=== PATIENT | female | born 1975 ===

== ENCOUNTER 2018-07-04 06:08 | Emergency (ER) | payer OTHER ==
[2018-07-04 06:09] VITALS: BMI 48.4
[2018-07-04 06:32] VITALS: RESP 18; TEMP 98.1
--- NOTE | 2018-07-04 07:17 | ED PDOC ---
Arrival/HPI - General Chief Complaint: Cough, Cold, Congestion Time Seen by Provider: 07/04/18 07:03 Historian: Patient - History of Present Illness Narrative History of Present Illness (Text): 07/04/18 07:19 43 year old female, with past medical history of anemia, rheumatoid arthritis, and hypertension, presents to the emergency department for complaints of cough with symptoms that began on Wednesday. She reports that it initially began as an itchiness in her throat and that she produced a lot of green phlegm. Patient states that currently she is experiencing dry, nonproductive cough. She reports no difficulty breathing but states that her ribs hurt from coughing. Patient notes taking augmentin and medication given to her at a clinic without significant improvement. Patient denies any fevers, chills, chest pain, shortnes s of breath, abdominal pain, or any other complaints. Time/Duration: < week (Wednesday) Symptom Onset: Gradual Symptom Course: Unchanged Activities at Onset: Light Context: Home Past Medical History - Provider Review Nursing Documentation Reviewed: Yes Primary Care Provider: Gamaliel Ny Jr. - Infectious Disease Hx of Infectious Diseases: None - Cardiac Hx Hypertension: Yes - Pulmonary Hx Respiratory Disorders: No - Neurological Hx Neurological Disorder: No - Hematological/Oncological Hx Anemia: Yes (with iron injection) - Musculoskeletal/Rheumatological Hx Arthritis: Yes (rheumatoid) - Psychiatric Hx Substance Use: No - Surgical History Hx Gastric Bypass Surgery: Yes Other/Comment: gastric sleeve - Anesthesia Hx Anesthesia: Yes Hx Anesthesia Reactions: No - Suicidal Assessment Feels Threatened In Home Enviroment: No Family/Social History - Physician Review Nursing Documentation Reviewed: Yes Family/Social History: No Known Family HX Smoking Status: Never Smoked Hx Alcohol Use: No Hx Substance Use: No Allergies/Home Meds Allergies/Adverse Reactions: Allergies No Known Allergies Allergy (Verified 07/04/18 06:18) Home Medications: Home Meds Medication Instructions Recorded Confirmed Amoxicillin/Clavulanate [Augmentin 1 tab PO Q12H 07/04/18 07/04/18 875 MG-125 MG Tab] Dm/PE/Acetaminophen/Chlorphenr 2 tab PO Q8H 07/04/18 07/04/18 [Cold Relief Multi-Symp Caplet] Review of Systems - Physician Review All systems were reviewed & negative as marked: Yes - Review of Systems Constitutional: absent: Fevers Respiratory: absent: SOB Physical Exam - Physical Exam Narrative Physical Exam (Text): 07/04/18 07:16 Constitutional: No acute distress. Head: Normocephalic. Atraumatic. Eyes: PERRL. ENT: Moist mucous membranes. Neck: Supple. Cardiovascular: Regular rate. Chest: No tenderness. Respiratory: Clear to auscultation bilaterally. GI: Soft. Nontender. Nondistended. Back: No CVA tenderness. Musculoskeletal: No tenderness or swelling of extremities. Skin: No rash. Neurologic: Alert, no focal deficit. Vital Signs Reviewed: Yes Vital Signs Temp Pulse Resp BP Pulse Ox 07/04/18 06:23 98.1 F 92 H 18 147/113 H 97 Temperature: Afebrile Blood Pressure: Normal Pulse: Regular Respiratory Rate: Normal Appearance: Positive for: Well-Appearing, Non-Toxic, Comfortable Pain Distress: None Mental Status: Positive for: Alert and Oriented X 3 Medical Decision Making ED Course and Treatment: 07/04/18 07:29 Impression: 43 year old female presents to emergency department complaining of cough since Wednesday. Plan: Already on antibiotics. Due to primary complaint of dryness in throat, will advise discontinuation of medication patient taking that includes phenylephrine. Advised humdifier, honey with tea, continue other medications. - Scribe Statement The provider has reviewed the documentation as recorded by the Scribe Kendall Franklin All medical record entries made by the Scribe were at my direction and personally dictated by me. I have reviewed the chart and agree that the record accurately reflects my personal performance of the history, physical exam, medical decision making, and the department course for this patient. I have also personally directed, reviewed, and agree with the discharge instructions and disposition. Disposition/Present on Arrival - Present on Arrival Any Indicators Present on Arrival: No History of DVT/PE: No History of Uncontrolled Diabetes: No Urinary Catheter: No History of Decub. Ulcer: No History Surgical Site Infection Following: None - Disposition Have Diagnosis and Disposition been Completed?: Yes Diagnosis: Dry throat Disposition: HOME/ ROUTINE Disposition Time: 07:15 Patient Plan: Discharge Condition: FAIR Discharge Instructions (ExitCare): Sore Throat, Adult (DC) Prescriptions: Benzonatate [Tessalon Perles] 200 mg PO TID #30 sgl Forms: [employer] ([place])
[2018-07-04 07:21] VITALS: BP 153/98; PULSE 80; O2SAT 96
--- NOTE | 2018-07-05 11:14 | CARD ---
APPROVED REPORT Date of service: 07/04/2018 EKG Measurement Heart [id number] <Conclusion> Normal sinus rhythm Normal ECG
== END 2018-07-04 07:24 | disposition home or self-care (01) ==
LOC: ED 06:08
DX: J39.2 Other diseases of pharynx (principal); I10 Essential (primary) hypertension

== ENCOUNTER 2018-07-05 10:02 | Emergency (ER) | payer OTHER ==
[2018-07-05 10:11] VITALS: TEMP 98.2; BMI 54.9
[2018-07-05] MEDS: Albuterol-Ipratrop 3 mg / 0.5 (3 ml) UD IH SCH ×3 (11:00→11:26)
--- NOTE | 2018-07-05 11:02 | ED PDOC ---
Arrival/HPI - General Time Seen by Provider: 07/05/18 10:16 Historian: Patient - History of Present Illness Narrative History of Present Illness (Text): 07/05/18 10:16 Jody Turner is a 43 year old female, with a past medical history of anemia, rheumatoid arthritis, and hypertension, who presents to the emergency department complaining of sore throat and dry cough. Patient informs of fever on Wednesday. Patient also notes runny nose. Patient informs visiting clinic on Wednesday for productive cough and sore throat; patient was prescribed augmentin and cough medication. Patient informs cough is no longer productive at this time. Patient was evaluated for cough yesterday on (07/04/18) and was advised to discontinue use of medication including phenylephrine, use a humidifier, and consume tea w/honey. Pt denies hx of COPD or asthma. Patient denies headache, dizziness, nasal congestion, chest pain, shortness of breath, changes in appetite, abdominal pain, nausea, vomiting, diarrhea, dysuria, hematuria, back pain, neck pain, or any other complaints. Time/Duration: < week (4 days ago productive cough and sore throat) Symptom Course: Unchanged Activities at Onset: Light Context: Home Past Medical History - Provider Review Nursing Documentation Reviewed: Yes - Infectious Disease Hx of Infectious Diseases: None - Cardiac Hx Hypertension: Yes - Pulmonary Hx Respiratory Disorders: No - Neurological Hx Neurological Disorder: No - Hematological/Oncological Hx Anemia: Yes (with iron injection) - Musculoskeletal/Rheumatological Hx Arthritis: Yes (rheumatoid) - Psychiatric Hx Substance Use: No - Surgical History Hx Gastric Bypass Surgery: Yes Other/Comment: gastric sleeve - Anesthesia Hx Anesthesia: Yes Hx Anesthesia Reactions: No - Suicidal Assessment Feels Threatened In Home Enviroment: No Family/Social History - Physician Review Nursing Documentation Reviewed: Yes Family/Social History: Unknown Family HX Smoking Status: Never Smoked Hx Alcohol Use: No Hx Substance Use: No Allergies/Home Meds Allergies/Adverse Reactions: Allergies No Known Allergies Allergy (Verified 07/05/18 11:27) Home Medications: Home Meds Medication Instructions Recorded Confirmed Amoxicillin/Clavulanate [Augmentin 1 tab PO Q12H 07/04/18 07/04/18 875 MG-125 MG Tab] Dm/PE/Acetaminophen/Chlorphenr 2 tab PO Q8H 07/04/18 07/04/18 [Cold Relief Multi-Symp Caplet] Review of Systems - Review of Systems Constitutional: absent: Fevers ENT: Sore Throat. absent: Sinus Congestion Respiratory: SOB, Cough Cardiovascular: absent: Chest Pain Gastrointestinal: absent: Abdominal Pain, Diarrhea, Nausea, Vomiting, Appetite Changes Genitourinary Female: absent: Dysuria, Hematuria Musculoskeletal: absent: Back Pain, Neck Pain Neurological: absent: Headache, Dizziness Physical Exam Vital Signs Reviewed: Yes Vital Signs Temp Pulse Resp BP Pulse Ox 07/05/18 10:06 98.2 F 94 H 18 149/110 H 98 Temperature: Afebrile Blood Pressure: Normal Pulse: Regular Respiratory Rate: Normal Appearance: Positive for: Well-Appearing, Non-Toxic, Comfortable Pain Distress: None Mental Status: Positive for: Alert and Oriented X 3 - Systems Exam Head: Present: Atraumatic, Normocephalic Pupils: Present: PERRL Extroacular Muscles: Present: EOMI Conjunctiva: Present: Normal Mouth: Present: Moist Mucous Membranes Pharnyx: Present: ERYTHEMA (scant erythema). No: EXUDATE, TONSILS ENLARGED Neck: Present: Normal Range of Motion. No: Meningeal Signs, MIDLINE TENDERNESS Respiratory/Chest: Present: Good Air Exchange, Wheezes (scant wheezes at the bases). No: Respiratory Distress, Accessory Muscle Use Cardiovascular: Present: Regular Rate and Rhythm, Normal S1, S2. No: Murmurs, Rub, Gallop Abdomen: Present: Normal Bowel Sounds. No: Tenderness, Distention, Peritoneal Signs, Rebound, Guarding Back: Present: Normal Inspection Upper Extremity: Present: Normal Inspection. No: Cyanosis, Edema Lower Extremity: Present: Normal Inspection. No: Edema Neurological: Present: GCS=15, CN II-XII Intact, Speech Normal Skin: Present: Warm, Dry, Normal Color. No: Rashes Psychiatric: Present: Alert, Oriented x 3, Normal Insight, Normal Concentration Medical Decision Making ED Course and Treatment: 07/05/18 10:16 Impression: Patient is a 43 year old female, with a past medical history of anemia, rheumatoid arthritis, and hypertension, who presents to the emergency department complaining of sore throat and dry cough. Plan: -- EKG -- Chest X-Ray 2V -- Duoneb -- Benzonatate -- Reassess and disposition Prior Visits: Notes and results from previous visits were reviewed. Progress Notes: 07/05/18 14:27 Cxray" Mild multilevel degenerative spondylosis of the lumbar spine.. There also appears to be a minimal subclinical dextroscoliosis centered in the mid thoracic region VISUALIZED UPPER ABDOMEN: Normal. OTHER FINDINGS: None. IMPRESSION: No active disease. 07/05/18 14:29 On reevaluation, wheezing is resolved and patient feels better. - RAD Interpretation Radiology Orders: 07/05/18 11:02 CHEST TWO VIEWS (PA/LAT) [RAD] Stat - Scribe Statement The provider has reviewed the documentation as recorded by the Scribe Adrien He All medical record entries made by the Scribe were at my direction and personally dictated by me. I have reviewed the chart and agree that the record accurately reflects my personal performance of the history, physical exam, medical decision making, and the department course for this patient. I have also personally directed, reviewed, and agree with the discharge instructions and disposition. Disposition/Present on Arrival - Present on Arrival Any Indicators Present on Arrival: No History of DVT/PE: No History of Uncontrolled Diabetes: No Urinary Catheter: No History Surgical Site Infection Following: None - Disposition Have Diagnosis and Disposition been Completed?: Yes Diagnosis: URI (upper respiratory infection), Wheezing Disposition: HOME/ ROUTINE Disposition Time: 14:28 Patient Plan: Discharge Patient Problems: Current Active Problems Problem Status Onset URI (upper respiratory infection) Acute Wheezing Acute Condition: GOOD Discharge Instructions (ExitCare): Wheezing, Cough, Runny Nose, and the Common Cold (DC) Additional Instructions: Take full course of augmentin previously prescribed. Cough medication as needed. Albuterol as needed. Prescriptions: Albuterol HFA [Ventolin HFA 90 mcg/actuation (8 g)] 2 puff IH [id number] #1 puff Benzonatate [Tessalon Perles] 100 mg PO TID PRN #30 sgl PRN Reason: Cough
--- NOTE | 2018-07-05 14:23 | RAD ---
Date of service: 07/05/2018 HISTORY: cough COMPARISON: No prior. TECHNIQUE: Chest PA and lateral views FINDINGS: LUNGS: No active pulmonary disease. PLEURA: No significant pleural effusion identified. No pneumothorax apparent. CARDIOVASCULAR: No aortic atherosclerotic calcification present. Normal cardiac size. No pulmonary vascular congestion. OSSEOUS STRUCTURES: Mild multilevel degenerative spondylosis of the lumbar spine.. There also appears to be a minimal subclinical dextroscoliosis centered in the mid thoracic region VISUALIZED UPPER ABDOMEN: Normal. OTHER FINDINGS: None. IMPRESSION: No active disease.
[2018-07-05 14:35] VITALS: BP 134/75; PULSE 82; RESP 18; O2SAT 98
== END 2018-07-05 14:45 | disposition home or self-care (01) ==
LOC: ED 10:02
DX: J06.9 Acute upper respiratory infection, unspecified (principal); I10 Essential (primary) hypertension; D64.9 Anemia, unspecified; Z98.84 Bariatric surgery status